=== PATIENT | female | born 1935 | race Caucasian/White ===

== ENCOUNTER 2016-07-02 12:26 | Inpatient (IN) | payer MEDICARE, MEDICAID ==
[~2016-07-02] VITALS: Ht 152.4 cm; Wt 69.9 kg
[~2016-07-02 12:26] MED LIST: APIX5TAB PO; ASPI-1035 PO; ATOR10TA69 PO; MEMA5TAB15 PO; METO25TA6; TRAM50TA3 PO
[2016-07-02] MEDS ORDERED: MORPHINE SULFATE 4 MG/ML CPJ (NOT FOR IM USE) IV ONE (13:15)
[2016-07-02] MEDS ORDERED: ONDANSETRON HCL 4MG/2ML VIAL IV ONE (13:15)
[2016-07-02] MEDS ORDERED: CLONIDINE 0.1MG TABLET PO PRN (13:45)
[2016-07-02] MEDS ORDERED: MAGNESIUM/ALUMINUM HYDROXIDE/SIMETHICONE 30ML UDC PO PRN (13:45)
[2016-07-02] MEDS ORDERED: ONDANSETRON HCL 4MG/2ML VIAL IV PRN (13:45)
[2016-07-02] MEDS ORDERED: DOCUSATE SODIUM 100MG CAPSULE PO PRN (13:45)
[2016-07-02] MEDS ORDERED: IPRATROPIUM/ALBUTEROL 0.5-3(2.5)MG/3ML NEB INH PRN (13:45)
[2016-07-02] MEDS ORDERED: ACETAMINOPHEN 325MG TABLET PO PRN (13:45)
[2016-07-02 14:20] LABS: BASOPHILS % 0.7 % (0.0-2.0); HEMATOCRIT. 34.4 % (36.0-48.0); HEMOGLOBIN. 11.3 g/dL (12.0-16.0); LYMPHOCYTES % 11.5 % (20.0-50.0); MEAN CORPUSCULAR HEMOGLOBIN 32.4 pg (28.0-32.0); MEAN CORPUSCULAR HGB CONC 32.9 g/dL (31.0-37.0); MEAN CORPUSCULAR VOLUME 98.5 fL (81.0-99.0); MEAN PLATELET VOLUME 8.3 fl (7.4-10.4); MONOCYTES % 8.3 % (2.0-8.0); NEUTROPHILS % 71.5 % (40.0-76.0); PLATELET 205 x1000/uL (130-400); RED CELL DISTRIBUTION WIDTH 13.8 % (11.6-14.6); WHITE BLOOD COUNT 6.3 x1000/uL (4.5-11.0)
[2016-07-02 14:22] LABS: CHLORIDE 112 mEq/L (98-107); INDEX HEMOLYSI 1 (1-3); INDEX ICTERIC 1 (1-4); INDEX LIPEMIC 1 (1-3)
[2016-07-02 14:26] LABS: INR 1.1; PARTIAL THROMBOPLASTIN TIME 27.4 sec (24.0-34.0); PROTHROMBIN TIME 11.1 sec
[2016-07-02 14:31] LABS: ALANINE AMINOTRANSFERASE 30 IU/L (13-61); ALBUMIN 2.8 g/dL (3.4-5.0); ANION GAP 11; CALCIUM 8.2 mg/dL (8.5-10.1); CARBON DIOXIDE 26 mEq/L (21-32); UREA NITROGEN BLOOD 22 mg/dL (7-21); eGFR > 60 mL/min (>60)
[2016-07-02 15:34] VITALS: BP 138/64
[2016-07-02 16:00] VITALS: BP 138/69
[2016-07-02] MEDS ORDERED: DEXTROSE 50% WATER 50ML SYRINGE IV PRN (16:00)
[2016-07-02] MEDS: BLOOD SUGAR DIAGNOSTIC STRIP TEST SCH ×2 (17:40→20:15)
[2016-07-02] MEDS: INSULIN LISPRO 100 UNITS/ML SUBCUT SCH ×2 (18:10→20:15)
[2016-07-02] MEDS: MEMANTINE HCL 5MG TABLET PO SCH (18:53)
[2016-07-02] MEDS: APIXABAN 5 MG TABLET PO SCH (18:53)
[2016-07-02 20:00] VITALS: BP 142/74
[2016-07-02] MEDS: ATORVASTATIN CALCIUM 10MG TABLET PO SCH (20:26)
[2016-07-02] MEDS: HYDROCODONE/ACETAMINOPHEN 5/325MG TABLET PO PRN (20:27)
[2016-07-03] VITALS: BP 152/66
[2016-07-03 04:00] VITALS: BP 142/69
[2016-07-03 06:26] LABS: CHLORIDE 110 mEq/L (98-107); INDEX HEMOLYSI 1 (1-3); INDEX ICTERIC 1 (1-4); INDEX LIPEMIC 1 (1-3)
[2016-07-03 06:31] LABS: ANION GAP 12; CALCIUM 8.3 mg/dL (8.5-10.1); CARBON DIOXIDE 25 mEq/L (21-32); MAGNESIUM 2.2 mg/dL (1.8-2.4); UREA NITROGEN BLOOD 20 mg/dL (7-21); eGFR > 60 mL/min (>60)
[2016-07-03 07:09] LABS: BASOPHILS % 0.8 % (0.0-2.0); EOSINOPHILS % 8.8 % (0.0-5.0); HEMATOCRIT. 33.3 % (36.0-48.0); HEMOGLOBIN. 10.9 g/dL (12.0-16.0); LYMPHOCYTES % 16.2 % (20.0-50.0); MEAN CORPUSCULAR HEMOGLOBIN 31.9 pg (28.0-32.0); MEAN CORPUSCULAR HGB CONC 32.8 g/dL (31.0-37.0); MEAN CORPUSCULAR VOLUME 97.4 fL (81.0-99.0); MEAN PLATELET VOLUME 8.6 fl (7.4-10.4); NEUTROPHILS % 67.2 % (40.0-76.0); PLATELET 193 x1000/uL (130-400); RED BLOOD CELL COUNT 3.42 mill/uL (4.2-5.4); RED CELL DISTRIBUTION WIDTH 13.4 % (11.6-14.6); WHITE BLOOD COUNT 5.8 x1000/uL (4.5-11.0)
[2016-07-03] MEDS: OMEPRAZOLE 20MG CAPSULE EXTENDED RELEASE PO SCH (07:40)
[2016-07-03 07:45] VITALS: BP 151/64
[2016-07-03] MEDS: INSULIN LISPRO 100 UNITS/ML SUBCUT SCH ×4 (08:10→21:00)
[2016-07-03] MEDS: BLOOD SUGAR DIAGNOSTIC STRIP TEST SCH ×4 (08:24→21:07)
[2016-07-03] MEDS: ASPIRIN 81MG EC TABLET PO SCH (08:26)
[2016-07-03] MEDS: APIXABAN 5 MG TABLET PO SCH (08:26)
[2016-07-03] MEDS: MEMANTINE HCL 5MG TABLET PO SCH ×2 (08:29→17:41)
[2016-07-03 11:44] VITALS: BP 119/63
[2016-07-03] MEDS: METOPROLOL TARTRATE 25MG TABLET PO SCH ×2 (12:48→21:05)
[2016-07-03] MEDS: AMLODIPINE 5MG TABLET PO SCH (12:49)
[2016-07-03 16:04] VITALS: BP 139/90
[2016-07-03 20:00] VITALS: BP 125/64
[2016-07-03] MEDS: ATORVASTATIN CALCIUM 10MG TABLET PO SCH (21:04)
[2016-07-03] MEDS: HYDROCODONE/ACETAMINOPHEN 5/325MG TABLET PO PRN (21:05)
[2016-07-04] VITALS: BP 136/72
[2016-07-04 04:00] VITALS: BP 158/69
[2016-07-04] MEDS: HYDROCODONE/ACETAMINOPHEN 5/325MG TABLET PO PRN (04:11)
[2016-07-04] MEDS: BLOOD SUGAR DIAGNOSTIC STRIP TEST SCH ×4 (06:11→20:17)
[2016-07-04 08:00] VITALS: BP 133/86
[2016-07-04 08:09] LABS: BASOPHILS % 0.4 % (0.0-2.0); EOSINOPHILS % 6.7 % (0.0-5.0); HEMATOCRIT. 36.2 % (36.0-48.0); HEMOGLOBIN. 11.9 g/dL (12.0-16.0); LYMPHOCYTES % 11.1 % (20.0-50.0); MEAN CORPUSCULAR HEMOGLOBIN 31.5 pg (28.0-32.0); MEAN CORPUSCULAR HGB CONC 32.9 g/dL (31.0-37.0); MEAN CORPUSCULAR VOLUME 95.8 fL (81.0-99.0); MEAN PLATELET VOLUME 8.3 fl (7.4-10.4); MONOCYTES % 7.4 % (2.0-8.0); NEUTROPHILS % 74.4 % (40.0-76.0); PLATELET 223 x1000/uL (130-400); RED BLOOD CELL COUNT 3.77 mill/uL (4.2-5.4); RED CELL DISTRIBUTION WIDTH 13.3 % (11.6-14.6); WHITE BLOOD COUNT 7.1 x1000/uL (4.5-11.0)
[2016-07-04] MEDS: INSULIN LISPRO 100 UNITS/ML SUBCUT SCH ×4 (08:10→20:20)
[2016-07-04] MEDS: ASPIRIN 81MG EC TABLET PO SCH (08:17)
[2016-07-04] MEDS: AMLODIPINE 5MG TABLET PO SCH (08:17)
[2016-07-04] MEDS: MEMANTINE HCL 5MG TABLET PO SCH ×2 (08:17→17:17)
[2016-07-04] MEDS: METOPROLOL TARTRATE 25MG TABLET PO SCH ×2 (08:17→20:21)
[2016-07-04] MEDS: OMEPRAZOLE 20MG CAPSULE EXTENDED RELEASE PO SCH (08:17)
[2016-07-04 08:22] LABS: ANION GAP 11; CALCIUM 8.5 mg/dL (8.5-10.1); CARBON DIOXIDE 27 mEq/L (21-32); CHLORIDE 108 mEq/L (98-107); HDL CHOLESTEROL 73 mg/dL (40-59); INDEX HEMOLYSI 1 (1-3); INDEX ICTERIC 1 (1-4); INDEX LIPEMIC 1 (1-3); LDL CHOLESTEROL 62 mg/dL (5-100); TRIGLYCERIDE 79 mg/dL (0-150); UREA NITROGEN BLOOD 17 mg/dL (7-21); eGFR > 60 mL/min (>60)
[2016-07-04 12:00] VITALS: BP 131/70
[2016-07-04 16:00] VITALS: BP 128/79
[2016-07-04 20:00] VITALS: BP 126/62
[2016-07-04] MEDS: ATORVASTATIN CALCIUM 10MG TABLET PO SCH (20:20)
[2016-07-05] VITALS (11 sets, daily range): BP systolic 111–145; BP diastolic 60–78
[2016-07-05 06:08] LABS: CHLORIDE 107 mEq/L (98-107); INDEX HEMOLYSI 1 (1-3); INDEX ICTERIC 1 (1-4); INDEX LIPEMIC 1 (1-3)
[2016-07-05 06:24] LABS: ANION GAP 12; CALCIUM 8.6 mg/dL (8.5-10.1); CARBON DIOXIDE 25 mEq/L (21-32); MAGNESIUM 2.1 mg/dL (1.8-2.4); UREA NITROGEN BLOOD 19 mg/dL (7-21); eGFR > 60 mL/min (>60)
[2016-07-05 06:45] LABS: BASOPHILS % 0.8 % (0.0-2.0); EOSINOPHILS % 6.2 % (0.0-5.0); HEMATOCRIT. 35.9 % (36.0-48.0); LYMPHOCYTES % 11.6 % (20.0-50.0); MEAN CORPUSCULAR HEMOGLOBIN 32.1 pg (28.0-32.0); MEAN CORPUSCULAR HGB CONC 33.5 g/dL (31.0-37.0); MEAN PLATELET VOLUME 8.9 fl (7.4-10.4); MONOCYTES % 10.2 % (2.0-8.0); NEUTROPHILS % 71.2 % (40.0-76.0); PLATELET 227 x1000/uL (130-400); RED BLOOD CELL COUNT 3.74 mill/uL (4.2-5.4); RED CELL DISTRIBUTION WIDTH 13.4 % (11.6-14.6); WHITE BLOOD COUNT 7.8 x1000/uL (4.5-11.0)
[2016-07-05] MEDS: BLOOD SUGAR DIAGNOSTIC STRIP TEST SCH ×4 (07:40→21:13)
[2016-07-05] MEDS: INSULIN LISPRO 100 UNITS/ML SUBCUT SCH ×4 (08:10→21:15)
[2016-07-05] MEDS: ASPIRIN 81MG EC TABLET PO SCH (09:22)
[2016-07-05] MEDS: METOPROLOL TARTRATE 25MG TABLET PO SCH ×2 (09:22→21:12)
[2016-07-05] MEDS: AMLODIPINE 5MG TABLET PO SCH (09:22)
[2016-07-05] MEDS: OMEPRAZOLE 20MG CAPSULE EXTENDED RELEASE PO SCH (09:22)
[2016-07-05] MEDS: MEMANTINE HCL 5MG TABLET PO SCH ×2 (09:22→17:53)
[2016-07-05] MEDS ORDERED: ASPIRIN/SOD BICARB/CITRIC ACID 324MG TAB EFF ONE (12:55)
[2016-07-05] MEDS ORDERED: MIDAZOLAM HCL 2 MG/2 ML VIAL ONE (12:59)
[2016-07-05] MEDS ORDERED: LIDOCAINE HCL 1% 20ML VIAL (Pyxis) INJ ONE (12:59)
[2016-07-05] MEDS ORDERED: HYDROCORTISONE SOD SUCCINATE 250 MG/2 ML VIAL ONE (13:00)
[2016-07-05] MEDS ORDERED: FENTANYL CITRATE/PF 50MCG/ML 2ML VIAL ONE (13:00)
[2016-07-05] MEDS ORDERED: IODIXANOL 320MG/ML 100 ML BOTTLE IV ONE (13:00)
[2016-07-05] MEDS ORDERED: DIPHENHYDRAMINE 50MG/ML VIAL ONE (13:00)
[2016-07-05] MEDS ORDERED: FAMOTIDINE 20MG/2ML VIAL IV ONE (13:01)
[2016-07-05] MEDS ORDERED: HEPARIN SODIUM 1,000 UNIT/1ML VIAL IV ONE (13:27)
[2016-07-05] MEDS ORDERED: ONDANSETRON HCL 4MG/2ML VIAL IV PRN (14:00)
[2016-07-05] MEDS ORDERED: MORPHINE SULFATE 2 MG/ML CPJ (NOT FOR IM USE) IV PRN (14:00)
[2016-07-05] MEDS ORDERED: ATROPINE SULFATE 1MG/10ML SYR IV PRN (14:00)
[2016-07-05] MEDS ORDERED: ACETAMINOPHEN 325MG TABLET PO PRN (14:00)
[2016-07-05] MEDS: SODIUM CHLORIDE 0.45% 1,000 ML IV NR (17:53)
[2016-07-05] MEDS: ATORVASTATIN CALCIUM 10MG TABLET PO SCH (21:12)
[2016-07-06 00:17] VITALS: BP 140/77
[2016-07-06] MEDS: SODIUM CHLORIDE 0.45% 1,000 ML IV NR (02:14)
[2016-07-06 04:00] VITALS: BP 122/66
[2016-07-06 06:33] LABS: ANION GAP 12; CALCIUM 8.6 mg/dL (8.5-10.1); CARBON DIOXIDE 25 mEq/L (21-32); CHLORIDE 107 mEq/L (98-107); INDEX HEMOLYSI 1 (1-3); INDEX ICTERIC 1 (1-4); INDEX LIPEMIC 1 (1-3); UREA NITROGEN BLOOD 19 mg/dL (7-21); eGFR > 60 mL/min (>60)
[2016-07-06 06:59] LABS: BASOPHILS % 0.2 % (0.0-2.0); EOSINOPHILS % 0.1 % (0.0-5.0); HEMATOCRIT. 35.6 % (36.0-48.0); HEMOGLOBIN. 11.9 g/dL (12.0-16.0); LYMPHOCYTES % 8.5 % (20.0-50.0); MEAN CORPUSCULAR HEMOGLOBIN 31.8 pg (28.0-32.0); MEAN CORPUSCULAR HGB CONC 33.4 g/dL (31.0-37.0); MEAN CORPUSCULAR VOLUME 95.3 fL (81.0-99.0); MEAN PLATELET VOLUME 8.7 fl (7.4-10.4); MONOCYTES % 6.6 % (2.0-8.0); NEUTROPHILS % 84.6 % (40.0-76.0); PLATELET 258 x1000/uL (130-400); RED BLOOD CELL COUNT 3.73 mill/uL (4.2-5.4); RED CELL DISTRIBUTION WIDTH 13.2 % (11.6-14.6)
[2016-07-06] MEDS: BLOOD SUGAR DIAGNOSTIC STRIP TEST SCH ×4 (07:40→21:03)
[2016-07-06 08:00] VITALS: BP 142/72
[2016-07-06] MEDS: INSULIN LISPRO 100 UNITS/ML SUBCUT SCH ×4 (08:10→21:00)
[2016-07-06] MEDS: OMEPRAZOLE 20MG CAPSULE EXTENDED RELEASE PO SCH (09:11)
[2016-07-06] MEDS: AMLODIPINE 5MG TABLET PO SCH (09:12)
[2016-07-06] MEDS: METOPROLOL TARTRATE 25MG TABLET PO SCH ×2 (09:12→21:03)
[2016-07-06] MEDS: ASPIRIN 81MG EC TABLET PO SCH (09:12)
[2016-07-06] MEDS: MEMANTINE HCL 5MG TABLET PO SCH ×2 (09:12→17:40)
[2016-07-06 11:40] VITALS: BP 83/43
[2016-07-06 12:00] VITALS: BP 129/70
[2016-07-06 16:00] VITALS: BP 107/63
[2016-07-06] MEDS ORDERED: APIXABAN 5 MG TABLET PO SCH (18:10)
[2016-07-06] MEDS: ATORVASTATIN CALCIUM 10MG TABLET PO SCH (21:02)
== END 2016-07-06 21:20 | DRG 300 ==
LOC: SUPCPDRO 12:56 → ER 12:59 → 7WST 13:08
PROVIDERS: ADMIT Specialist; ATTEND Specialist
PROC: B41FYZZ Fluoroscopy of Right Lower Extremity Arteries using Other Contrast (ICD-10-PCS; principal; 2016-07-05)
PROC: 0YH733Z Insertion of Infusion Device into Right Femoral Region, Percutaneous Approach (ICD-10-PCS; 2016-07-05)
DX: E11.51 Type 2 diabetes mellitus with diabetic peripheral angiopathy without gangrene (principal); K22.10 Ulcer of esophagus without bleeding; N39.0 Urinary tract infection, site not specified; E44.1 Mild protein-calorie malnutrition; I82.509 Chronic embolism and thrombosis of unspecified deep veins of unspecified lower extremity; I65.22 Occlusion and stenosis of left carotid artery; K44.9 Diaphragmatic hernia without obstruction or gangrene; D64.9 Anemia, unspecified; F03.90 Unspecified dementia, unspecified severity, without behavioral disturbance, psychotic disturbance, mood disturbance, and anxiety; M19.90 Unspecified osteoarthritis, unspecified site; E78.5 Hyperlipidemia, unspecified; I11.9 Hypertensive heart disease without heart failure; I27.2 Other secondary pulmonary hypertension; J44.9 Chronic obstructive pulmonary disease, unspecified; Z79.01 Long term (current) use of anticoagulants; Z87.19 Personal history of other diseases of the digestive system; Z95.0 Presence of cardiac pacemaker; Z88.8 Allergy status to other drugs, medicaments and biological substances; Z88.0 Allergy status to penicillin; Z91.013 Allergy to seafood; Z86.73 Personal history of transient ischemic attack (TIA), and cerebral infarction without residual deficits; Z79.82 Long term (current) use of aspirin; Z79.899 Other long term (current) drug therapy; I25.2 Old myocardial infarction; Z87.81 Personal history of (healed) traumatic fracture; Z68.30 Body mass index [BMI] 30.0-30.9, adult
CPT/HCPCS: 36246; 36415; 71010; 75710; 80048; 80053; 80061; 82962; 83036; 83735; 85025; 85610; 85730; 93005; 96374; 96375; 99285; C1760; C1769; C1893; J1200; J1644; J1720; J1815; J2250; J2270; J2405; J3010; J3490; L1830; Q9967

== ENCOUNTER → 2017-09-21 | Outpatient (CLI) | payer MEDICARE, MEDICAID ==
[~2017-09-21] MED LIST changes: -ASPI-1035 PO; +ASPI-1158 PO
== END | disposition home or self-care (01) ==
LOC: MAMMO 13:42
PROVIDERS: ATTEND Specialist
DX: Z12.31 Encounter for screening mammogram for malignant neoplasm of breast (principal)
CPT/HCPCS: 77067